=== PATIENT | female | born 1950 | race African-American/Black ===

== ENCOUNTER 2019-11-05 08:11 | Emergency (ER) | payer MEDICARE, MEDICAID ==
[2019-11-05 08:17] VITALS: BP 199/93
--- NOTE | 2019-11-05 10:02 | ER Document Report ---
ED Medical Screen (RME) - General Chief Complaint: Eye Pain Stated Complaint: EYE PAIN Time Seen by Provider: 11/05/19 09:58 Mode of Arrival: Ambulatory Information source: Patient Notes: 69-year-old female presented to ED for pain is and redness burning in her eye. She states it is very sensitive to light. She states she does not know she is gotten something in her eye. She states it drained all night and kept her awake and it is very itchy. She states she does have allergies going on at this time to I have greeted and performed a rapid initial assessment of this patient. A comprehensive ED assessment and evaluation of the patient, analysis of test results and completion of medical decision making process will be conducted by an additional ED providers. Physical Exam - Vital signs Vitals: Temp Pulse Resp BP Pulse Ox 98.6 F 95 16 199/93 H 97 11/05/19 08:14 11/05/19 08:14 11/05/19 08:14 11/05/19 08:14 11/05/19 08:14 Course - Vital Signs Vital signs: Temp Pulse Resp BP Pulse Ox 98.6 F 95 16 199/93 H 97 11/05/19 08:14 11/05/19 08:14 11/05/19 08:14 11/05/19 08:14 11/05/19 08:14
[2019-11-05] MEDS ORDERED: TETRACAINE HCL 0.5% OPH SOLN 4 ML OS ONE (11:55)
--- NOTE | 2019-11-05 13:29 | ER Document Report ---
Entered by NAEL BINGHAM SCRIBE 11/05/19 1152 Acting as scribe for:ONIEL NAZARIO MD ED Eye Complaint - General Chief Complaint: Eye Pain Stated Complaint: EYE PAIN Time Seen by Provider: 11/05/19 09:58 Mode of Arrival: Ambulatory Information source: Patient Notes: This 69 year old female patient presents to the emergency department today with complaints of left eye redness. Patient states last night she noticed her left eye was red with clear drainage. Patient states her left eye is sensitive to light and reports pain when opening/closing her eye. Patient states she does not remember anything getting in her eye, but it is itchy. Patient states she met a friend x12 days ago who possibly had conjunctivitis. Patient states she does not want a covid test. Past Medical History - General Information source: Patient - Social History Smoking Status: Never Smoker Cigarette use (# per day): No Chew tobacco use (# tins/day): No Frequency of alcohol use: None Drug Abuse: None Family History: Reviewed & Not Pertinent - Past Medical History Cardiac Medical History: Reports: Hx Hypertension Review of Systems - Review of Systems Constitutional: No symptoms reported EENT: See HPI, Eye pain - L, Eye discharge - clear, Other - L eye redness Cardiovascular: No symptoms reported Respiratory: No symptoms reported Gastrointestinal: No symptoms reported Genitourinary: No symptoms reported Female Genitourinary: No symptoms reported Musculoskeletal: No symptoms reported Skin: No symptoms reported Hematologic/Lymphatic: No symptoms reported Neurological/Psychological: No symptoms reported -: Yes All other systems reviewed and negative Physical Exam - Vital signs Vitals: Temp Pulse Resp BP Pulse Ox 98.6 F 95 16 199/93 H 97 11/05/19 08:14 11/05/19 08:14 11/05/19 08:14 11/05/19 08:14 11/05/19 08:14 - General General appearance: Appears well, Alert - HEENT Head: Normocephalic, Atraumatic Conjunctiva: Injected - L Extraocular movements intact: Yes Eyelashes: Normal Pupils: PERRL Visual acuity- Right eye: 20/25 Visual acuity- Left eye: 20/70 Visual acuity- Both eyes: 20/25 Corrective lenses worn: Yes Fundascopic: Normal. No: Retinal detachment, Retinal hemorrhage Notes: No flourescein stain uptake in the left eye. No corneal abrasions or ulcers. No embedded or superficial foreign bodies. - Respiratory Respiratory status: No respiratory distress Chest status: Nontender Breath sounds: Normal Chest palpation: Normal - Cardiovascular Rhythm: Regular Heart sounds: Normal auscultation Murmur: No - Abdominal Inspection: Normal Distension: No distension Bowel sounds: Normal Tenderness: Nontender - Extremities General upper extremity: Normal inspection. No: Edema General lower extremity: Normal inspection. No: Edema - Neurological Neuro grossly intact: Yes Cognition: Normal Orientation: AAOx4 Speech: Normal - Psychological Associated symptoms: Normal affect, Normal mood - Skin Skin Temperature: Warm Skin Moisture: Dry Skin Color: Normal Course - Vital Signs Vital signs: Temp Pulse Resp BP Pulse Ox 98.6 F 95 16 199/93 H 97 11/05/19 08:14 11/05/19 08:14 11/05/19 08:14 11/05/19 08:14 11/05/19 08:14 11/05/19 13:25 Vital signs show systolic hypertension. Discharge - Discharge Clinical Impression: Left conjunctivitis Condition: Stable Disposition: HOME, SELF-CARE Additional Instructions: Conjunctivitis You have an infection in your eye, commonly known as "pink eye." Conjunctivitis causes redness, mild discomfort, itching, and mattering on the e yelids. It is very contagious, so you must be careful to wash your hands after touching your face so you don't pass the infection on to others. Conjunctivitis is caused by both viruses and bacteria. It usually responds quickly to treatment with antibiotic drops. These should be placed in the eye as prescribed (usually every three to four hours while you're awake). If you wear contact lenses, don't put them in your eyes until the infection is cleared and you are no longer using the drops (unless your doctor advises you otherwise). Should you develop increasing eye pain, severe swelling, decreased vision, or fail to improve as expected, please return for re-examinatio Follow-up with toolroom attendant. N. Prescriptions: Tobramycin Sulfate/Dexameth [Tobradex Oph Drops 2.5 Ml Bottle] 2 drop OU QID 7 Days #1 bottle I personally performed the services described in the documentation, reviewed and edited the documentation which was dictated to the scribe in my presence, and it accurately records my words and actions.
== END 2019-11-05 13:34 | disposition home or self-care (01) ==
LOC: ER 08:11
DX: H10.9 Unspecified conjunctivitis (principal); I10 Essential (primary) hypertension
CPT/HCPCS: 99283; J3490